=== PATIENT | female | born 1975 | race Hispanic/Latino ===

== ENCOUNTER 2017-12-04 13:59 | Emergency (ER) | payer BC ==
[~2017-12-04] VITALS: Ht 157.5 cm; Wt 110.0 kg
[~2017-12-04 13:59] MED LIST: CIPRO500 MG OR; REGLAN5 MG OR
[2017-12-04] MEDS ORDERED: LEVOTHYROXIN50 MCG PO (14:11)
[2017-12-04] MEDS ORDERED: METFORMIN500 MG PO (14:11)
[2017-12-04] MEDS ORDERED: CHOLESTEROL PO (14:12)
[2017-12-04] MEDS ORDERED: IRON (FERROUS S50 MG PO (14:12)
[2017-12-04] MEDS ORDERED: ATORVASTATIN CA10 MG PO (14:20)
[2017-12-04] MEDS ORDERED: FERR SULFATE325 MG PO (14:21)
[2017-12-04] MEDS ORDERED: PROAIR HFA108 MCG/AC PO (14:21)
[2017-12-04] MEDS ORDERED: CEPHALEXIN500 M1 PO (14:42)
[2017-12-04 14:45] VITALS: BP 117/79
== END 2017-12-04 14:45 | disposition home or self-care (01) | DRG 605 ==
LOC: ED 13:59
PROC: 0HQKXZZ Repair Right Lower Leg Skin, External Approach (ICD-10-PCS; principal; 2017-12-04)
DX: S81.811A Laceration without foreign body, right lower leg, initial encounter (principal); E11.9 Type 2 diabetes mellitus without complications; E07.9 Disorder of thyroid, unspecified; W26.0XXA Contact with knife, initial encounter; Y93.G3 Activity, cooking and baking; Y92.000 Kitchen of unspecified non-institutional (private) residence as the place of occurrence of the external cause

== ENCOUNTER 2017-12-15 11:19 | Emergency (ER) | payer BC ==
[~2017-12-15] VITALS: Ht 157.5 cm; Wt 109.0 kg
[~2017-12-15 11:19] MED LIST changes: +ATORVASTATIN CA10 MG PO; +CEPHALEXIN500 M1 PO; +CHOLESTEROL PO; +FERR SULFATE325 MG PO; +IRON (FERROUS S50 MG PO; +LEVOTHYROXIN50 MCG PO; +METFORMIN500 MG PO; +PROAIR HFA108 MCG/AC PO
[2017-12-15] MEDS ORDERED: KEFLEX500 M1 PO (12:04)
[2017-12-15 12:10] VITALS: BP 124/72
== END 2017-12-15 12:10 | disposition home or self-care (01) | DRG 950 ==
LOC: ED 11:19
DX: S81.811D Laceration without foreign body, right lower leg, subsequent encounter (principal); Z48.02 Encounter for removal of sutures

== ENCOUNTER 2020-04-27 19:33 | Emergency (ER) | payer OTHER ==
[~2020-04-27] VITALS: Ht 157.5 cm; Wt 95.0 kg
[~2020-04-27 19:33] MED LIST changes: +KEFLEX500 M1 PO
[2020-04-27 21:21] LABS: HEMATOCRIT 41.2 % (37.0-47.0); HEMOGLOBIN 13.3 g/dl (12.0-16.0); IMMATURE GRANULOCYTES 0.5 % (0.0-5.0); MEAN CELL VOLUME 86.6 fL CALC (80.0-100.0); MEAN CORPUSCULAR HGB 27.9 pG CALC (26.0-32.0); MEAN CORPUSCULAR HGB CONC 32.3 g/dL CAL (32.0-36.0); NEUT# 2.19 thou/uL (2.00-7.15); RED BLOOD COUNT 4.76 mill/uL (4.20-5.60); RED CELL DISTRI WIDTH 12.9 % (11.5-15.5)
[2020-04-27 21:40] LABS: ALKALINE PHOSPHATASE 101 u/l (38-126); ANION GAP 15 (6-22 (CALC)); BILIRUBIN, TOTAL 0.5 mg/dL (0.0-1.4); BUN 10 mg/dL (7-17); BUN/CREATININE RATIO 15 (12-20 (CALC)); CARBON DIOXIDE 24 mmol/l (22-30); CHLORIDE 101 mmol/l (95-108); CREATININE 0.6 mg/dL (0.5-1.0); GFR > 60 ML/MIN (>=60 (CALC)); GFR FOR AFR.AMER. > 60 ML/MIN (>=60 (CALC)); POTASSIUM 3.5 mmol/l (3.5-5.1); SGOT/AST 25 u/l (14-36); SODIUM 136 mmol/l (137-146); TOTAL PROTEIN 7.4 g/dL (6.3-8.2)
[2020-04-27 21:52] LABS: MYOGLOBIN 14 ng/mL (0 - 62)
[2020-04-27] MEDS ORDERED: ZPAK PO (21:56)
[2020-04-27] MEDS ORDERED: MEDDOSEPAK PO (21:56)
[2020-04-27] MEDS ORDERED: ALBUTEROL SUL0.083 % IN (21:56)
[2020-04-27 22:46] VITALS: BP 125/60
== END 2020-04-27 23:05 | disposition home or self-care (01) ==
LOC: ED 19:33 → EDBD 19:33 → ED 20:47
PROVIDERS: Emergency Medicine
DX: U07.1 COVID-19 (principal); J45.901 Unspecified asthma with (acute) exacerbation; E11.9 Type 2 diabetes mellitus without complications; Z79.84 Long term (current) use of oral hypoglycemic drugs

== ENCOUNTER 2020-04-30 13:34 | Emergency (ER) | payer OTHER ==
[~2020-04-30] VITALS: Ht 157.5 cm; Wt 95.5 kg
[~2020-04-30 13:34] MED LIST changes: +ALBUTEROL SUL0.083 % IN; +MEDDOSEPAK PO; +ZPAK PO
[2020-04-30 14:41] LABS: HEMATOCRIT 39.2 % (37.0-47.0); HEMOGLOBIN 12.6 g/dl (12.0-16.0); IMMATURE GRANULOCYTES 0.5 % (0.0-5.0); MEAN CELL VOLUME 86.3 fL CALC (80.0-100.0); MEAN CORPUSCULAR HGB 27.8 pG CALC (26.0-32.0); MEAN CORPUSCULAR HGB CONC 32.1 g/dL CAL (32.0-36.0); NEUT# 4.54 thou/uL (2.00-7.15); RED BLOOD COUNT 4.54 mill/uL (4.20-5.60); RED CELL DISTRI WIDTH 13.2 % (11.5-15.5)
[2020-04-30 14:58] LABS: ALBUMIN 4.1 g/dL (3.2-5.0); ALKALINE PHOSPHATASE 87 u/l (38-126); ANION GAP 13 (6-22 (CALC)); BUN 14 mg/dL (7-17); BUN/CREATININE RATIO 31 (12-20 (CALC)); C-REACTIVE PROTEIN < 0.5 mg/dL (0-0.9); CARBON DIOXIDE 22 mmol/l (22-30); CHLORIDE 103 mmol/l (95-108); CREATININE 0.5 mg/dL (0.5-1.0); GFR > 60 ML/MIN (>=60 (CALC)); GFR FOR AFR.AMER. > 60 ML/MIN (>=60 (CALC)); LIPASE 114 u/l (23-300); POTASSIUM 3.8 mmol/l (3.5-5.1); SGOT/AST 24 u/l (14-36); SODIUM 133 mmol/l (137-146); TOTAL PROTEIN 7.5 g/dL (6.3-8.2)
[2020-04-30 14:59] LABS: BILIRUBIN, TOTAL 0.8 mg/dL (0.0-1.4)
[2020-04-30 15:01] LABS: ACT PARTIAL THROMBO TIME 19.8 SECONDS (20.0-32.5); PROTHROMBIN TIME 9.9 SECONDS (9.0-12.5)
[2020-04-30 15:11] LABS: D-DIMER 0.31 mg/L (0.19-0.60)
[2020-04-30 17:56] VITALS: BP 145/67
== END 2020-04-30 17:30 | disposition home or self-care (01) ==
LOC: ED 13:34
DX: U07.1 COVID-19 (principal); R19.7 Diarrhea, unspecified; J45.901 Unspecified asthma with (acute) exacerbation; E11.9 Type 2 diabetes mellitus without complications; Z79.84 Long term (current) use of oral hypoglycemic drugs